=== PATIENT | male | born 2000 ===

== ENCOUNTER 2018-04-29 19:48 | Emergency (ER) | payer OTHER ==
[2018-04-29 19:59] VITALS: BP 127/63
[2018-04-29] MEDS ORDERED: Ondansetron ODT TAB* 4 MG PO ONE ×2 (20:13→20:50)
[2018-04-29 20:28] LABS: Influenza A Molecular NEGATIVE (Negative); Influenza B Molecular NEGATIVE (Negative)
--- NOTE | 2018-04-29 21:29 | UC ---
General HPI - HPI Summary HPI Summary: Patient presents to urgent care reporting since Friday he's had intermittent fevers with a MAXIMUM TEMPERATURE of 102. Patient's been having nausea and vomiting with last episode of emesis last evening. And diarrhea that started yesterday and completed to the day today. Vomitus is nonbloody nonblack. Patient denies any blood or black in the stool. Patient states he has nausea, and able to drink a little bit of water today. Patient's took Tylenol approximately one hour prior to arrival for temperature 101.2. Patient reports mild congestion. No shortness of breath. No cough. Patient is a student in [employer] and states has multiple sick contacts. Patient did not get a flu vaccine this year. Patient is otherwise not a chronically ill patient on no medications. Patient has taken any decongestants or cough medication. Patient without any rash. Patient medications reviewed this visit. - History of Current Complaint Chief Complaint: UCGI Stated Complaint: VOMITING Time Seen by Provider: 04/29/18 20:05 Hx Obtained From: Patient Onset/Duration: Gradual Onset Onset Severity: Moderate Current Severity: Mild Pain Intensity: 1 - Allergy/Home Medications Allergies/Adverse Reactions: Allergies Allergy/AdvReac Type Severity Reaction Status Date / Time No Known Allergies Allergy Verified 04/29/18 19:59 Home Medications: Home Medications Acetaminophen [Tylenol Extra Strength] 1,000 mg PO ONCE PRN 04/29/18 [History Confirmed 04/29/18] PMH/Surg Hx/FS Hx/Imm Hx Previously Healthy: Yes - Surgical History Surgical History: None - Family History Known Family History: Positive: Non-Contributory - Social History Occupation: Student Lives: Dormitory/Roommates Alcohol Use: Occasionally Substance Use Type: None Smoking Status (MU): Never Smoked Tobacco Review of Systems All Other Systems Reviewed And Are Negative: Yes Constitutional: Positive: Fever, Fatigue Skin: Positive: Negative Eyes: Positive: Negative ENT: Positive: Sinus Congestion Respiratory: Positive: Negative Cardiovascular: Positive: Negative Gastrointestinal: Positive: Vomiting, Diarrhea, Nausea. Negative: Abdominal Pain Genitourinary: Positive: Negative Motor: Positive: Negative Neurovascular: Positive: Negative Musculoskeletal: Positive: Myalgia Neurological: Positive: Headache - none currently Physical Exam - Summary Physical Exam Summary: Vital Signs Reviewed: Yes A+Ox3, tired appearing, mild pallor Eyes: Conjunctiva Clear, LENIN. EOM intact and full ENT: Hearing grossly normal TM x 2 clear, turbinates inflammed and boggy, mmoist, uvula midline, no exudate, no erythema Neck: Positive: Supple Respiratory: Positive: No respiratory distress, No accessory muscle use + CTA throughout no w/r Cardiovascular: RRR nl s1, s2 no m/r CBT <2 sec abd soft + BS nt/nd no guarding, no distension, no CVA Musculoskeletal Exam: WALLIS x 4 without difficulty Strength Intact, ROM Intact Neurological: Positive: Alert, + sensation throughout Psychological: Positive: Normal Response To Family Skin: Positive: no rash, no ecchymosis, mild pallor Triage Information Reviewed: Yes Vital Signs: Initial Vital Signs Temp 95.5 F 04/29/18 19:55 Pulse 115 04/29/18 19:55 Resp 18 04/29/18 19:55 BP 127/63 04/29/18 19:55 Pulse Ox 97 04/29/18 19:55 Re-Evaluation - Re-Evaluation First Eval Change: Improved - Patient markedly improved following the Zofran. He states his nausea is gone. Patient's color improved. HR < 100. Patient draml entire bottle water without any difficulty at urgent care. No diarrhea at urgent care. Patient's influenza A and B were both negative. I had a long discussion with patient regarding viral illnesses. Patient without any focal findings to support antibiotics. Recommend Motrin/Tylenol. Discussed with patient secretion precautions humidified air. Strict return precautions. Over- the-counter symptomatically medications. Patient given a note for school today and tomorrow as well as on Friday. Patient encouraged to follow-up with [facility] or go to the emergency department with any questions or concerns. Patient comfortable in agreement with plan. Patient states he feels much better. Patient given Zofran for home. Patient declined offer to talk to parent. Course/Dx - Course Course Of Treatment: Patient presents to urgent care with 5 days of body aches, intermittent temperatures responsive to Tylenol. Intermittent headaches responsive to Tylenol, nausea vomiting and diarrhea. Last episode of emesis was last night. Patient states last diarrhea was approximately one hour ago. Patient nonbloody nonblack. 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 On exam patient appears mildly pale. Patient vital signs reviewed repeat temperatures within normal slightly low. Patient without focal pain or findings on exam. We'll check rapid flu. We'll give patient Zofran. By mouth challenge and reassess. - Diagnoses Provider Diagnosis: Viral syndrome, Nausea vomiting and diarrhea Discharge - Sign-Out/Discharge Documenting (check all that apply): Patient Departure All imaging exams completed and their final reports reviewed: No Studies - Discharge Plan Condition: Stable Disposition: HOME Prescriptions: Ondansetron ODT TAB* [Zofran 4 MG Odt TAB*] 4 mg PO Q6HR #10 tab.odt Patient Education Materials: Viral Syndrome (ED) Forms: *Gen. Provider Communication, *School Release Referrals: [facility] [Outside] No Primary Care Phys,[facility] [Primary Care Provider] - Additional Instructions: - Stay well hydrated. Drink plenty of non-alcoholic, non-caffinated beverages. - Alternate ibuprofen (Advil, Motrin) 600mg and Tylenol 1000mg every 3 hours for pain or fever. Take with food. Do NOT take for more than 4-5 days. - These infections are spread by secretions - do NOT share eating or drinking utensils - clean items you share with other people such as cell phones, computer mouse, TV remote, computer tablets,etc. Once you start to feel better, change your toothbrush and your pillowcase. - get plenty of restful sleep - humidify the air in the room where you sleep - boil water, run a hot steam shower, vaporizer, cups of water by heat register - okay to take over the counter decongestant and cough medication - okay to take medication as prescribed for nausea and vomiting - If you develop uncontrolled fevers, uncontrolled vomiting, rash, pain or ANY other concerns, it is recommended you go to the emergency department for further evaluation and treatment - Billing Disposition and Condition Condition: STABLE Disposition: Home
== END 2018-04-29 21:08 | disposition home or self-care (01) ==
LOC: UCEAST 19:48
DX: R11.2 Nausea with vomiting, unspecified (principal); B34.9 Viral infection, unspecified; R19.7 Diarrhea, unspecified
CPT/HCPCS: 99202; A9270-GY; G0463